=== PATIENT | female | born 1995 | race Caucasian/White ===

== ENCOUNTER → 2016-10-22 20:21 | Observation (INO) ==
[2016-10-22 19:23] LABS: Bilirubin,Urine Negative (Negative); Blood,Urine Negative (Negative); Clarity,Urine Cloudy (Clear); Color,Urine Yellow (Yellow); Glucose,Urine (UA) Normal (Normal); Ketones,Urine Negative (Negative); Leukocyte Esterase,Urine Trace (Negative); Nitrite,Urine Negative (Negative); Protein,Urine Negative (Neg-Trace); Specific Gravity,Urine 1.009 (1.010-1.025); Urobilinogen,Urine Normal (Normal)
[2016-10-22 19:25] LABS: Bacteria,Urine Moderate per hpf (None-Few); Hyaline Casts,Urine None Seen per lpf (None-Few); RBC,Urine 0-3 per hpf (0-3); Squamous Epithelial Cell,Urine Many per lpf (None-Few); WBC,Urine 0-3 per hpf (0-3)
[~2016-10-22 20:21] MED LIST: Nitrofurantoin (BID) 100 MG CAPSULE PO SCH
--- NOTE | 2016-10-22 20:23 | OB/GYN Progress Note ---
Date of Encounter: 10/22/16 Time of Encounter: 20:20 - Assessment and Plan (1) 32 weeks gestation of Current Visit: Yes Status: Acute Receives care with Dr. Magallanes. Follow-up scheduled in 3 days. (2) Threatened labor Current Visit: Yes Status: Acute No evidence for cervical change. labor warnings given. Patient encouraged to increase by mouth fluids and complete antibiotics Qualifiers: Trimester: third trimester Qualified Code(s): O47.03 - False labor before 37 completed weeks of gestation, third trimester Subjective - Subjective Principal diagnosis: 32 wk IUP Interval history: The patient is a 20-year-old female 3 para 2001 at 32 weeks gestation who presents to labor and delivery complaining of abdominal pain. She is concerned that she is having contractions. She has a history of contractions with this and in a previous . She had positive fibronectin previously. On 10/12 and she was started on Macrobid for a possible UTI. She has not completed her course of antibiotics yet. She had blood in her urine at that time and there is concern for possible kidney stone. Her urine culture was negative. She denies any hematuria, dysuria or urinary frequency. She reports an active fetus. She denies any vaginal bleeding, loss of fluid or recent intercourse. Patient reports 2 days of diarrhea, 5 loose stools today and 3 loose stools yesterday. She denies any bloody stools, nausea or vomiting Antepartum ROS: movement normal, contractions, no vaginal bleeding Objective - Vital Signs Vital Signs: Intake and Output 10/22/16 10/22/16 10/22/16 07:59 15:59 23:59 Other: Weight 69.7 kg Patient Weight 10/22/16 23:59 Weight 69.7 kg - Exam FHR: category 1 FHR comments: Baseline 140s. [place] shows irritability at arrival which resolved during stay Auscultation: bilateral: normal Abdomen: Present: soft, gravid. Absent: tenderness Uterus: Absent: tenderness Cervical dilation: Closed Cervix effacement: Thick station: -3 Comments: No CVA tenderness bilaterally. Extremities nontender, no pretibial edema. EGBUS normal. No vaginal bleeding - Labs Labs: Abnormal lab results Urine Clarity Cloudy (Clear) A 10/22/16 19:08 Ur Specific [place] 1.009 (1.010-1.025) L 10/22/16 19:08 Ur Leukocyte Esterase Trace (Negative) H 10/22/16 19:08 Ur Squamous Epith Cells Many per lpf (None-Few) H 10/22/16 19:08 Urine Bacteria Moderate per hpf (None-Few) H 10/22/16 19:08 Ur Culture Indicated? YES (NO) A 10/22/16 19:08 - Allied health notes Allied health notes reviewed: nursing
== END | disposition home or self-care (01) ==
LOC: 1NENULAB
PROVIDERS: ADMIT Obstetrics & Gynecology; ATTEND Obstetrics & Gynecology

== ENCOUNTER → 2016-11-22 17:37 | Observation (INO) ==
--- NOTE | 2016-11-22 16:24 | OB/GYN History & Physical ---
Date of Encounter: 11/22/16 Time of Encounter: 16:20 Assessment and Plan (1) 36 weeks gestation of Current visit: Yes Status: Acute admitted for observation for labor evaluation and SROM. (2) Dysuria during in third trimester Current visit: Yes Status: Acute UA sent to lab History of Present Illness Chief complaint: Leaking of fluid and contractions HPI: Ms. Hernandez is a 21 year old female at 36w5d presents to labor and delivery with c/o leaking clear fluid at 1130 with contractions. Patient reports she has had 2 wet pads since 1130. Patient denies any vaginal bleeding. Patient does report dysuria and urinary frequency. Patient denies intercourse in past 48 hours. Patient reports +FM. Past Med Surg Social Fam HX - Past Medical History Source: patient Medical history: no medical history Psychiatric history: depression - Social History Smoking Status: Current every day smoker Smokeless Tobacco Status: No Alcohol use: none Drug use: none Obstetrical History - Pregnancies : 3 Para: 2 Term: 2 : 0 Ab's: 0 Livin Medications and Allergies Ferrous Sulfate 1 tab PO BID 10/22/16 [History] Macrobid 1 tab PO BID 10/22/16 [History] Allergies No Known Allergies Allergy (Verified 10/22/16 19:32) Review of System OB - Constitutional Constitutional ROS IM: no chills, no fever(s), no headache(s) - Cardiovascular Cardiovascular: no chest pain, no lightheadedness, no palpitations, no pedal edema, no syncope - Respiratory Respiratory: no dyspnea - Gastrointestinal Gastrointestinal: no abdominal pain, no constipation, no diarrhea, no heartburn , no nausea, no vomiting - Genitourinary Genitourinary: dysuria, urinary frequency, vaginal discharge, no abnormal vaginal bleeding, no flank pain, no urinary hesitancy, no urinary incontinence, no urinary urgency, no vaginal odor, no vaginal pruritis Exam - Constitutional Constitutional: well developed, well nourished, no acute distress, average body habitus - HEENT HEENT: Normocephaly, Mucus Membranes Moist - Neck Neck exam: full ROM, supple - Lungs Respiratory exam: CTAB - Cardiovascular Cardiovascular exam: RRR, +S1, +S2 - Abdomen Abdomen: Present: bowel sounds normal, gravid, non tender - Extremities Extremities exam: full ROM, normal capillary refill, normal inspection Deep Tendon Reflex Grade: 2+ Normal - Vagina Vagina: Present: normal moisture - Cervix Dilation: 1 Effacement: 50 Station: -3 - Uterus Uterus exam: Present: normal size, normal contour - Anus/Rectum Anus/Rectum: Present: normal perianal skin - Comments Comments: Speculum exam: No pooling noted, Nitrazine negative, Fern Negative. FHR 125 bpm moderate variability, irregular contractions noted. Results All other labs normal. - VTE Reasons for not Prescribing Prophylaxis: Treatment not Indicated - Low risk for VTE
[2016-11-22 16:30] LABS: Bilirubin,Urine Negative (Negative); Blood,Urine Negative (Negative); Clarity,Urine Cloudy (Clear); Color,Urine Yellow (Yellow); Glucose,Urine (UA) Normal (Normal); Ketones,Urine Negative (Negative); Leukocyte Esterase,Urine Moderate (Negative); Nitrite,Urine Negative (Negative); Protein,Urine Negative (Neg-Trace); Specific Gravity,Urine < 1.005 (1.010-1.025); Urobilinogen,Urine Normal (Normal)
[2016-11-22 16:33] LABS: Bacteria,Urine Many per hpf (None-Few); Hyaline Casts,Urine None Seen per lpf (None-Few); Squamous Epithelial Cell,Urine Many per lpf (None-Few)
[2016-11-22 17:00] LABS: RBC,Urine 0-3 per hpf (0-3)
--- NOTE | 2016-11-22 17:29 | Discharge Summary ---
Date of Encounter: 11/22/16 Time of Encounter: 17:29 - Discharge Diagnosis (1) 36 weeks gestation of Priority: Primary Status: Acute Comments: false labor (2) Dysuria during in third trimester Priority: Secondary Status: Acute (3) NST (non-stress test) reactive Priority: Secondary Status: Acute Comments: FHR 125 bpm moderate variability +15x15 accels no decels noted. - Discharge Medications Home Medications: Ferrous Sulfate 1 tab PO BID 10/22/16 [History] Macrobid 1 tab PO BID 10/22/16 [History] Allergies/Adverse Reactions: Allergies No Known Allergies Allergy (Verified 10/22/16 19:32) Data Procedures and tests throughout hospitalization: Laboratory Tests 11/22/16 16:21 Urine Color Yellow Urine Clarity Cloudy A Urine pH 7.0 Ur Specific [place] < 1.005 L Urine Protein Negative Urine Glucose (UA) Normal Urine Ketones Negative Urine Blood Negative Urine Nitrite Negative Urine Bilirubin Negative Urine Urobilinogen Normal Ur Leukocyte Esterase Moderate H Urine Microscopic RBC 0-3 Urine Microscopic WBC 5-15 H Ur Squamous Epith Cells Many H Urine Bacteria Many H Hyaline Casts None Seen Ur Culture Indicated? YES A Labs on day of discharge: Labs from last 24 hours 11/22/16 16:21 Urine Color Yellow Urine Clarity Cloudy A Urine pH 7.0 Ur Specific [place] < 1.005 L Urine Protein Negative Urine Glucose (UA) Normal Urine Ketones Negative Urine Blood Negative Urine Nitrite Negative Urine Bilirubin Negative Urine Urobilinogen Normal Ur Leukocyte Esterase Moderate H Urine Microscopic RBC 0-3 Urine Microscopic WBC 5-15 H Ur Squamous Epith Cells Many H Urine Bacteria Many H Hyaline Casts None Seen Ur Culture Indicated? YES A Date of admission: 11/22/16 15:53 Primary care physician: Arturo Lewis CNP Discharging clinician: Praveena Mi Anticipated date of discharge: 11/22/16 - Patient Status Disposition: Home, Self-Care Condition: Good Functional capacity at discharge: independent ambulation - Discharge Instructions Follow Up With: Arturo Lewis CNP [Primary Care Provider] - Jorge Magallanes DO [Partnered Physician] - - Diet and Activity Activity: increase activity as tolerated Diet: regular diet Hospital Course MECHANICAL ASSEMBLY TECHNICIAN Time Attestation: Total time spent providing and/or coordinating discharge services: Time Spent: Less than 30 minutes Exam - Other Additional findings: Reactive NST. FHR 125 bpm moderate variability +15x15 accels no decels noted. Irregular contraction. SVE: /thick/-3 - VTE Reasons for not Prescribing Prophylaxis: Treatment not Indicated - Low risk for VTE
== END | disposition home or self-care (01) ==
LOC: 1NENULAB
PROVIDERS: ADMIT Obstetrics & Gynecology; ATTEND Obstetrics & Gynecology

== ENCOUNTER 2016-12-11 09:49 | Inpatient (IN) ==
[2016-12-11] MEDS ORDERED: Ondansetron 4 MG/2 ML VIAL IVP PRN (09:58)
[2016-12-11] MEDS ORDERED: Metoclopramide 10 MG/2 ML VIAL IVP PRN (09:58)
[2016-12-11] MEDS ORDERED: Famotidine 20 MG/2 ML VIAL IVP PRN (09:58)
[2016-12-11] MEDS ORDERED: Ringers Solution, Lactated 1,000 ML IVC SCH (10:00)
[2016-12-11] MEDS ORDERED: miSOPROStol 100 MCG TABLET PO STA (10:26)
--- NOTE | 2016-12-11 10:35 | OB/GYN History & Physical ---
Date of Encounter: 12/11/16 Time of Encounter: 10:31 Assessment and Plan (1) 39 weeks gestation of Current visit: Yes Status: Acute admit for observation (2) Elective induction of labor planned Current visit: Yes Status: Acute Will start Cytotec PO History of Present Illness Chief complaint: Patient here for scheduled IOL at 39w3d. HPI: Ms. Hernandez is a 21 year old female at 39w3d presents to labor and delivery for scheduled IOL. Discussed POC with patient. Patient denies any questions or concerns. Patient reports irregular contractions, denies LOF or VB. Patient reports +FM. Blood type: O+, Rubella: Immune, Hep B: nonreactive, GBS: Negative. Past Med Surg Social Fam HX - Past Medical History Source: patient Medical history: no medical history Psychiatric history: depression - Past Surgical History Surgical History: no surgical history - Social History Smoking Status: Current every day smoker Smokeless Tobacco Status: No Alcohol use: none Drug use: none Activity Level: Independent ambulation Recent Out of Country Travel Within the Last 8 Weeks: No Exposure or Possible Exposure to Illness During Travel: No - Family History Father Living Status: Still Living Hx Family Respiratory Disorders: Yes (asthma) Obstetrical History - Pregnancies : 3 Para: 2 Term: 2 : 0 Ab's: 2 Livin Medications and Allergies Ferrous Sulfate 1 tab PO BID 10/22/16 [History] Tablet 11/22/16 [History] Allergies No Known Allergies Allergy (Verified 10/22/16 19:32) Review of System OB - Constitutional Constitutional ROS IM: no chills, no fever(s), no headache(s) - Cardiovascular Cardiovascular: no chest pain, no dyspnea, no lightheadedness, no palpitations, no syncope - Respiratory Respiratory: no dyspnea - Gastrointestinal Gastrointestinal: no abdominal pain, no constipation, no diarrhea, no heartburn , no nausea, no vomiting - Genitourinary Genitourinary: no abnormal menses, no abnormal vaginal bleeding, no dysuria, no flank pain, no urinary frequency, no urinary urgency, no vaginal discharge, no vaginal odor, no vaginal pruritis Exam - Constitutional Constitutional: well developed, well nourished, no acute distress, average body habitus - HEENT HEENT: Normocephaly, Mucus Membranes Moist - Neck Neck exam: full ROM, supple - Lungs Respiratory exam: CTAB - Cardiovascular Cardiovascular exam: RRR, +S1, +S2 - Abdomen Abdomen: Present: bowel sounds normal, gravid, non tender - Extremities Extremities exam: full ROM, normal capillary refill, normal inspection Deep Tendon Reflex Grade: 2+ Normal - Cervix Dilation: 2 (in office last week) Effacement: 70 Station: -1 - Uterus Uterus exam: Present: normal size, normal contour - Anus/Rectum Anus/Rectum: Present: normal perianal skin - Comments Comments: 130 bpm moderate variability +15x15 accels no decels noted. Cat. 1 tracing. No contractions Results All other labs normal. - VTE Reasons for not Prescribing Prophylaxis: Treatment not Indicated - Low risk for VTE
[2016-12-11 10:39] LABS: Basophils # 0.1 K/mcL (0.0-0.2); Basophils % 0.4 %; Eosinophils # 0.2 K/mcL (0.0-0.6); Eosinophils % 1.5 %; Hematocrit 32.9 % (35.3-44.9); Hemoglobin 10.8 g/dL (11.5-15.4); Immature Granulocytes % 2.6 % (0-4); Lymphocytes # 2.7 K/mcL (0.6-4.6); Lymphocytes % 20.8 %; Mean Corpuscular HGB Conc 32.8 g/dL (31.6-35.5); Mean Corpuscular Hemoglobin 30.2 pg (28.0-33.3); Mean Corpuscular Volume 91.9 fL (83.0-100.0); Mean Platelet Volume 13.2 fL (9.4-12.4); Monocytes # 0.7 K/mcL (0.0-1.3); Monocytes % 5.5 %; Red Blood Count 3.58 M/mcL (3.82-4.97); Red Cell Distribution Width 13.3 % (11.5-14.5); Segmented Neutrophils % 69.2 %
[2016-12-11 11:04] LABS: Neutrophils # 8.9 K/mcL (1.6-8.9); Platelet Count 118 K/mcL (140-400)
--- NOTE | 2016-12-11 11:13 | Anesthesia Evaluation PreOp ---
Date of Encounter: 12/11/16 Time of Encounter: 11:12 - Past History Planned Operation: vaginal del, Induction Cardiac History: Denies any Significant Hx Pulmonary History: Denies Any Significant HX [employer] History: Denies Any Significant HX Other Medical History: Denies Any Significant HX Anesthesia History: No Prior Anesthetic Complications (first epidural okay, second one unilateral, post delivery fever, aches, chills for one month with both children 2 and 1 year ago. was told it was epidural both times as the problem. patient denied any neck stiffness/[place]/ no imaging done/ no antibotic's given.), Past Anesthesia : Yes (term ) Alcohol Use: none Drug use: none Medications and Allergies Ferrous Sulfate 1 tab PO BID 10/22/16 [History] Tablet 1 tab PO DAILY 11/22/16 [History] Cephalexin [Keflex] 500 mg PO BID 12/11/16 [History] Allergies No Known Allergies Allergy (Verified 10/22/16 19:32) Anesthesia Results - Labs 12/11/16 10:20 Anesthesia Exam - HEENT Pupil (Motor): Pupils equal Mallampati: II Teeth: Normal Oral Opening: Greater than 3 - [employer] LOC: Oriented [employer] Motor: Normal RUE, Normal LUE, Normal RLE, Normal LLE, Normal Face [employer] Sensory: Normal: RUE, LUE, RLE, LLE, Face - Cardiac Rhythm: Regular - Pulmonary Breath Sounds: bilateral Clear Respiratory Effort: Symmetrical Anesthesia Assess/Plan ASA Score: 2 Modified [place] Scale for Level of Consciousness: Cooperative, oriented, and tranquil Anesthetic Plan: General, Regional Monitoring Plan: Standard Monitors Recovery Plan: PACU
[2016-12-11] MEDS ORDERED: Epidural Premix (fent/bupiv) 110 ML EP ONE (11:46)
--- NOTE | 2016-12-11 14:24 | OB Labor Progress Note ---
Date of Encounter: 12/11/16 Time of Encounter: 14:22 Labor Progress Note - Subjective Subjective: Patient resting in bed. Discussed POC with patient. patient denies any questions or concerns. - Cervix Cervix: 3/70/-2 - Heart Tones Heart Tones: 135 bpm moderate variability +15x15 accels no decels noted. - [place]: 2-3 min apart - Interventions Interventions: SVE, AROM scant amount of clear fluid noted. - Plan Plan: Continue labor management.
[2016-12-11] MEDS ORDERED: *HR* Nalbuphine 20 MG/ML AMPUL IVP PRN (15:15)
[2016-12-11] MEDS ORDERED: *HR* Nalbuphine 20 MG/ML AMPUL ONE (15:19)
--- NOTE | 2016-12-11 17:16 | Anesthesia Procedures ---
Date of Encounter: 12/11/16 Time of Encounter: 17:08 Procedures: Anesthesia - Epidural/Spinal Patient ID/Chart reviewed: Yes Patient examined: Yes OB Eval: Gestational age: term OB Eval: : 3 OB Eval: Hx Para: 2 OB Eval: Contractions: Non-stressed pattern Consent Obtained: Yes Site Prep: Aseptic Technique, Sterile prep and drape, 0.5% Chlorhexidine/Alcohol Patient position: upright Local Anesthetic: Lidocaine 1% Amount of Local Anesthetic used: 2 Touhy Needle Gauge: 18 Touhy Needle Depth (cm): 6 Catheter Depth at Skin (cm): 9 (slight resistance to threading minor parathesia right that resolved after cath thread. ) Test Dose (1.5% Lido + Epi): Volume given (mls): 3 Test Dose Result: Negative Loading Dose: Other: 12ml from solution Loading Dose Administered: Thru Catheter Infusion Med: 0.125% Bupivacaine w/ 2 mcg/ml Fentanyl Infusion Rate (mls/hr): [address]: Tegaderm Interspace Used: L4-L5 Loss of Resistance (KELVIN): Yes (saline) Blood: No CSF: No Paresthesia: No Procedure: vss though out, FHR stable per RN;s
--- NOTE | 2016-12-11 17:26 | OB Labor Progress Note ---
Date of Encounter: 12/11/16 Time of Encounter: 17:25 Labor Progress Note - Subjective Subjective: Patient smokes comfortable after her epidural. - Cervix Cervix: 4/70/-2 - Heart Tones Heart Tones: heart tones 140s reactive - [place]: IUPC placed contractions every 2-3 minutes - Plan Plan: Continue current care if she does not make cervical change in the next couple hours we will augment with Pitocin
[2016-12-11] MEDS ORDERED: Oxytocin 20 units/ LR 1000 mL 20 UNIT/1,000 ML BAG IVC ONE (19:45)
[2016-12-11] MEDS ORDERED: Acetaminophen 325 MG TABLET PO PRN (20:37)
[2016-12-11] MEDS ORDERED: Measles/Mumps/Rubella Vacc 0.5 ML VIAL SQ PRN (20:37)
[2016-12-11] MEDS ORDERED: Oxytocin 20 units/ LR 1000 mL 20 UNIT/1,000 ML BAG IVC SCH (20:45)
--- NOTE | 2016-12-11 20:53 | OB/GYN Procedure Note ---
Delivery - Delivery Date: 12/11/16 Provider: Jorge Magallanes Intrapartum events: none Delivery induction: AROM, misoprostol Delivery monitor: external FHT, external uterine, internal uterine Anesthesia: epidural Estimated Blood Loss: 100 - (s) Infant A Infant Delivery Date: 12/11/16 Infant Delivery Time: 20:24 Presentation: vertex Position: RODERICK Route of delivery: Gender: Female Viability: Viable Pounds: 6 Ounces: 0 Weight Gram: 2.71 kg at 1 minute: 8 at 5 mins: 9 Shoulder Dystocia: not encountered Specimens collected: cord blood Cord: 3 umbilical vessels - Repair Episiotomy: none Laceration Description: None - Complications Delivery complications: none Delivery comments: Patient is a 21-year-old 3 para 2 at 39-3/7 weeks who presented for induction of labor a second term with favorable cervix. Patient was given by mouth Cytotec and declines a Resendiz catheter induction. Patient progressed appropriately she had spontaneous rupture membranes clear fluid noted. Patient did receive an epidural patient started to progress rapidly became complete she pushed one time delivering a viable female infant in right occiput anterior presentation at 2023. There was no nuchal cord, no meconium, was bulb suctioned on the abdomen, Apgars were 8 at 1 minute, 9 at 5 minutes, infant weight was 6 lbs. 0 oz. 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 Estimated blood loss was 100 mL. Perineum cervix vagina was all visualized intact. She will be observed 2 hours before being taken floor. - Disposition Mom disposition: stable in LDR disposition: stable in LDR
[2016-12-12] MEDS: Ibuprofen 600 MG TABLET PO PRN ×2 (01:16→14:00)
[2016-12-12 06:43] LABS: Basophils % 0.2 %; Eosinophils # 0.2 K/mcL (0.0-0.6); Hematocrit 30.8 % (35.3-44.9); Hemoglobin 10.2 g/dL (11.5-15.4); Immature Granulocytes % 1.7 % (0-4); Lymphocytes # 2.8 K/mcL (0.6-4.6); Lymphocytes % 17.4 %; Mean Corpuscular HGB Conc 33.1 g/dL (31.6-35.5); Mean Corpuscular Hemoglobin 29.9 pg (28.0-33.3); Mean Corpuscular Volume 90.3 fL (83.0-100.0); Mean Platelet Volume 12.7 fL (9.4-12.4); Monocytes # 1.4 K/mcL (0.0-1.3); Monocytes % 8.9 %; Neutrophils # 11.5 K/mcL (1.6-8.9); Platelet Count 169 K/mcL (140-400); Red Blood Count 3.41 M/mcL (3.82-4.97); Red Cell Distribution Width 13.5 % (11.5-14.5); Segmented Neutrophils % 70.8 %
[2016-12-12 08:18] VITALS: BP 105/70
[2016-12-12] MEDS ORDERED: Prenatal Vit/FA 1 EACH TABLET PO SCH (09:00)
--- NOTE | 2016-12-12 10:19 | Discharge Summary ---
Date of Encounter: 12/12/16 Time of Encounter: 10:16 - Discharge Diagnosis (1) (spontaneous vaginal delivery) Priority: Primary Status: Acute Comments: Doing well s/p day 1 vaginal delivery Pain well controlled lochia light and without clots tolerating regular diet passing flatus and urinating without difficulty patient is breast feeding Discharge home today - Discharge Medications Prescriptions: Ibuprofen [Motrin] 600 mg PO Q6HR PRN #60 tablet PRN Reason: Cramping Docusate [Colace] 100 mg PO BID #30 capsule Ferrous Sulfate 325 mg PO DAILY #30 tablet Home Medications: Ferrous Sulfate 1 tab PO BID 10/22/16 [History] Tablet 1 tab PO DAILY 11/22/16 [History] Docusate [Colace] 100 mg PO BID #30 capsule 12/12/16 [Rx] Ferrous Sulfate 325 mg PO DAILY #30 tablet 12/12/16 [Rx] Ibuprofen [Motrin] 600 mg PO Q6HR PRN #60 tablet 12/12/16 [Rx] Allergies/Adverse Reactions: Allergies No Known Allergies Allergy (Verified 10/22/16 19:32) Data Procedures and tests throughout hospitalization: Laboratory Tests 12/11/16 12/12/16 10:20 06:10 WBC 12.9 H 16.2 H RBC 3.58 L 3.41 L Hgb 10.8 L 10.2 L Hct 32.9 L 30.8 L MCV 91.9 90.3 MCH 30.2 29.9 MCHC 32.8 33.1 RDW 13.3 13.5 Plt Count 118 L 169 MPV 13.2 H 12.7 H Immature Gran % 2.6 1.7 Seg Neutrophils % 69.2 70.8 Lymphocytes % 20.8 17.4 Monocytes % 5.5 8.9 Eosinophils % 1.5 1.0 Basophils % 0.4 0.2 Neutrophils # 8.9 11.5 H Lymphocytes # 2.7 2.8 Monocytes # 0.7 1.4 H Eosinophils # 0.2 0.2 Basophils # 0.1 0.0 Labs on day of discharge: Labs from last 24 hours 12/12/16 12/11/16 06:10 10:20 WBC 16.2 H 12.9 H RBC 3.41 L 3.58 L Hgb 10.2 L 10.8 L Hct 30.8 L 32.9 L MCV 90.3 91.9 MCH 29.9 30.2 MCHC 33.1 32.8 RDW 13.5 13.3 Plt Count 169 118 L MPV 12.7 H 13.2 H Immature Gran % 1.7 2.6 Seg Neutrophils % 70.8 69.2 Lymphocytes % 17.4 20.8 Monocytes % 8.9 5.5 Eosinophils % 1.0 1.5 Basophils % 0.2 0.4 Neutrophils # 11.5 H 8.9 Lymphocytes # 2.8 2.7 Monocytes # 1.4 H 0.7 Eosinophils # 0.2 0.2 Basophils # 0.0 0.1 Date of admission: 12/11/16 09:49 Primary care physician: Arturo Lewis CNP Consults: 12/11/16 20:37 Consult to [place] Runner [CONS] Routine Comment: Vaginal delivery, consult needed Discharging clinician: Adriana Sullivan Anticipated date of discharge: 12/12/16 - Patient Status Disposition: Home, Self-Care Condition: Good Functional capacity at discharge: independent ambulation Overall status at discharge: patient is progressing back to baseline - Discharge Instructions Follow Up With: Arturo Lewis CNP [Primary Care Provider] - Jorge Magallanes DO [Partnered Physician] - - Diet and Activity Activity: increase activity as tolerated Diet: regular diet Hospital Course Reason for admission: induction of labor Delivery: Episiotomy: none Laceration: none Other procedures: none complications: none Discharge diagnosis: IUP at term delivered [place] baby: female Time Attestation: Total time spent providing and/or coordinating discharge services: Time Spent: Less than 30 minutes Exam - Constitutional Vitals: Temp Pulse Resp BP Pulse Ox 98.7 F 82 12 105/70 97 12/12/16 08:16 12/12/16 08:16 12/12/16 08:16 12/12/16 08:16 12/12/16 08:16 General appearance IM: cooperative, A&O X 3, pleasant - Respiratory Respiratory exam: Present: CTAB - Cardiovascular Cardiovascular exam IM: Present: RRR, +S1, +S2 - GI/Abdominal GI/Abdominal exam IM: normal bowel sounds, soft - Rectal Rectal exam: deferred - Uterine Tone: Firm Uterus Position: 2 Fingers Below Umbilicus, Midline - Extremities Exam Extremities exam IM: Present: normal capillary refill, normal inspection, radial pulses palpable and symetrical - Neurological Exam Neurological exam: alert, oriented X3
== END 2016-12-12 16:30 | disposition home or self-care (01) | DRG 775 ==
LOC: 1NENULAB 09:49 → 1NENUOBS 22:47
PROVIDERS: ADMIT Obstetrics & Gynecology; ATTEND Obstetrics & Gynecology

== ENCOUNTER 2017-12-21 09:31 | Inpatient (IN) ==
[~2017-12-21 09:31] MED LIST changes: -Nitrofurantoin (BID) 100 MG CAPSULE PO SCH; +Ringers Solution, Lactated 2,000 ML ONE
[2017-12-21] MEDS ORDERED: *HR* Propofol 200 MG/20 ML VIAL IVP ONE (09:35)
[2017-12-21] MEDS ORDERED: *HR* Succinylcholine 200 MG/10 ML VIAL IVP ONE (09:35)
[2017-12-21] MEDS ORDERED: *HR* FentaNYL (PF) 100 MCG/2 ML VIAL ONE (09:35)
[2017-12-21] MEDS ORDERED: Dexamethasone 4 MG/ML VIAL ONE (09:35)
[2017-12-21] MEDS ORDERED: *HR* Oxytocin 10 UNIT/ML VIAL IM ONE ×3 (09:35→10:14)
[2017-12-21] MEDS ORDERED: Ringers Solution, Lactated 1,000 ML ONE ×3 (09:35→21:07)
[2017-12-21] MEDS ORDERED: Lidocaine -MPF 2% 5 ML VIAL ONE (09:42)
[2017-12-21] MEDS ORDERED: *HR* Morphine 10 MG/ML VIAL ONE (09:54)
[2017-12-21] MEDS ORDERED: Acetaminophen IV 1,000 MG/100 ML INFUS..BTL ONE ×2 (10:12→11:57)
[2017-12-21] MEDS ORDERED: Metoclopramide 10 MG/2 ML VIAL IVP PRN ×2 (10:50→13:15)
[2017-12-21] MEDS ORDERED: Ondansetron 4 MG/2 ML VIAL IVP PRN ×2 (10:50→13:15)
[2017-12-21] MEDS ORDERED: Naloxone 0.4 MG/ML INJ IVP PRN ×2 (11:47→13:15)
[2017-12-21] MEDS ORDERED: *HR* HYDROmorphone 20 MG/20 ML PCA IVC PRN ×2 (11:47→13:42)
[2017-12-21] MEDS ORDERED: Oxytocin 20 units/ LR 1000 mL 20 UNIT/1,000 ML BAG IVC ONE (11:52)
[2017-12-21] MEDS ORDERED: Ringers Solution, Lactated 1,000 ML IVC ONE (11:52)
[2017-12-21] MEDS ORDERED: CeFAZolin Premix DUPLEX 2,000 MG/50 ML BAG IVPB ONE (11:52)
[2017-12-21] MEDS ORDERED: Oxytocin 20 units/ LR 1000 mL 20 UNIT/1,000 ML BAG IVC SCH ×3 (12:00→13:15)
[2017-12-21] MEDS ORDERED: Ringers Solution, Lactated 1,000 ML IVC SCH (12:00)
--- NOTE | 2017-12-21 12:57 | Anesthesia Evaluation PreOp ---
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 No problems with GA, No FHAP. Epidurals with previous deliveries, no problems.) : Yes Alcohol Use: none Drug use: none Medications and Allergies Tablet 1 tab PO DAILY 11/22/16 [History] 3 Allergy/AdvReac Type Severity Reaction Status Date / Time No Known Allergies Allergy Verified 12/21/17 11:42 - Meds/Allergy Pre-op Review Medications Reviewed: Yes Allergies Reviewed: Yes Beta Blockers on Current Med List: No Anesthesia Exam VSS and FHTs stable. Height: 1.65m Weight: 62kg NPO (# of Hours): > 8 solids, sips H2O. Pain Scale: 10 Pain Scale Used: Numeric (1 - 10) - HEENT Pupil (Motor): Pupils equal, EOMI Mallampati: II Teeth: Poor dentition Oral Opening: Greater than 3 - AUTO DRIVER LOC: Oriented AUTO DRIVER Motor: Normal RUE, Normal LUE, Normal RLE, Normal LLE, Normal Face AUTO DRIVER Sensory: Normal: RUE, LUE, RLE, LLE, Face - Cardiac Rhythm: Regular - Pulmonary Breath Sounds: bilateral Clear Respiratory Effort: Symmetrical Anesthesia Assess/Plan ASA Score: 2, E Modified [place] Scale for Level of Consciousness: Cooperative, oriented, and tranquil Anesthetic Plan: General (Stat per Dr. Haas.) Monitoring Plan: Standard Monitors Recovery Plan: PACU
--- NOTE | 2017-12-21 13:01 | Anesthesia Evaluation Post Op ---
Date of Encounter: 12/21/17 Time of Encounter: 12:20 - Vital Signs Vital Signs: VSS throughout PACU stay. - Lungs Lungs: Clear Ascult./Percussion - Airway Airway: Non-obstructed - Cardiovascular Regular Rate - Mental Status Mental Status: Alert & Oriented, Answers Appropriately - Pain Pain Scale: 8 (appears in no distress) Pain Scale used: Numeric (1 - 10) - Nausea Vomiting Nausea Vomiting: Not Present - Hydration Hydration: NPO, Resendiz catheter - Discharge PostOp Status: Transfer Patient to floor
[2017-12-21] MEDS ORDERED: Simethicone 80 MG TAB.CHEW PO PRN (13:15)
[2017-12-21] MEDS ORDERED: Sennosides 8.6 MG TABLET PO PRN (13:15)
[2017-12-21] MEDS ORDERED: *HR* OxyCODONE/APAP 5/325 TABLET PO PRN (13:15)
[2017-12-21 17:18] LABS: Basophils % 0.2 %; Eosinophils # 0.2 K/mcL (0.0-0.6); Hematocrit 33.3 % (35.3-44.9); Hemoglobin 11.4 g/dL (11.5-15.4); Immature Granulocytes % 1.5 % (0-4); Immature Platelets 9.2 % (1.1-6.1); Lymphocytes # 2.8 K/mcL (0.6-4.6); Lymphocytes % 16.1 %; Mean Corpuscular HGB Conc 34.2 g/dL (31.6-35.5); Mean Corpuscular Hemoglobin 30.6 pg (28.0-33.3); Mean Corpuscular Volume 89.5 fL (83.0-100.0); Monocytes # 1.4 K/mcL (0.0-1.3); Neutrophils # 12.7 K/mcL (1.6-8.9); Platelet Count 195 K/mcL (140-400); Red Blood Count 3.72 M/mcL (3.82-4.97); Red Cell Distribution Width 13.8 % (11.5-14.5); Segmented Neutrophils % 73.2 %
--- NOTE | 2017-12-21 17:19 | OB/GYN Procedure Note ---
Section - Date of procedure: 12/21/17 Preop diagnosis: desires sterilization, breech Post-op diagnosis: same Procedure: primary low transverse, bilateral tubal ligation Surgeon: Bela Haas Quantitated Blood Loss: 550 Was there an culture media laboratory assistant present: Yes Engineering And Operations Director: Praveena Landa Anesthesiologist: Agustin Cruz Load Dispatcher: Violetta Elkins Anesthesia Type: General section complications: none Disposition: L&D Recovery Room Specimens: Placenta, Cord blood, Right tube segment, Left tube segment - Infant (s) Infant A Delivery Date: 12/21/17 Infant Delivery Time: :20 Presentation: breech Gender: Female Gram Weight: 2.97 kg at 1 minute: 9 at 5 minutes: 10 Shoulder Dystocia: not encountered - Narrative Narrative: After informed consent was obtained, she was taken to the operating room where she was placed in the dorsal supine position with a leftward tilt and prepped and draped in the usual sterile fashion. She had to be placed under General Anesthesia because she could not stay still for spinal anesthesia. As soon as General Anesthesia was given, a Pfannenstiel skin incision was made and carried down to the underlying layer of fascia. The fascia was excised in the midline and extended bluntly to reveal the rectus muscles. The rectus muscles were then bluntly to reveal the peritoneum. The peritoneum was identified and entered bluntly digitally. The bladder was identified and a bladder blade was inserted. A uterine incision was made with a knife and extended digitally revealing the baby. Both feet were identified and the baby was delivered from the breach position without any difficulty. The cord was clamped and cut with the baby handed off to the awaiting nurses. The placenta cord blood was obtained and the placenta was manually extracted from the uterus. The uterus was exteriorized and cleared of all clots and debris. Then, the uterine incision was closed with #0 Vicryl in a double closure stitch fashion, first layer in locking stitch fashion and the second layer an imbricating layer. Attention at this time was turned to the tubes bilaterally. Both tubes were isolated and followed all the way to the fimbriated end and tented up with the Grandy clamp at the center. A hemostat was probed through the mesosalpinx in the avascular area and then a section of tube was tied off with 0 plain gut and then transected with the Metzenbaum scissors. The ends were then burned with cautery. Both tube sections were noted to be hemostatic and the tubes were then sent to pathology. The uterus was then replaced back into the abdomen. The gutters were cleared of all clots and debris. The uterine incision was then once again inspected and noted to be hemostatic. X ray was done and was clear of any retained sponges. The fascia was then closed with #0 Vicryl in a running fashion. The skin edges were reapproximated using 4-0 vicryl. Dressing was placed. The patient tolerated the procedure well. Sponge, lap, and needle, counts were correct x2. The patient was taken to recovery in sable condition.
[2017-12-22 06:30] LABS: Basophils % 0.1 %; Eosinophils # 0.1 K/mcL (0.0-0.6); Eosinophils % 0.2 %; Hematocrit 26.8 % (35.3-44.9); Hemoglobin 9.2 g/dL (11.5-15.4); Immature Granulocytes % 1.2 % (0-4); Lymphocytes # 2.7 K/mcL (0.6-4.6); Lymphocytes % 11.3 %; Mean Corpuscular HGB Conc 34.3 g/dL (31.6-35.5); Mean Corpuscular Hemoglobin 31.3 pg (28.0-33.3); Mean Corpuscular Volume 91.2 fL (83.0-100.0); Mean Platelet Volume 11.9 fL (9.4-12.4); Monocytes # 2.2 K/mcL (0.0-1.3); Monocytes % 9.1 %; Neutrophils # 18.7 K/mcL (1.6-8.9); Platelet Count 169 K/mcL (140-400); Red Blood Count 2.94 M/mcL (3.82-4.97); Red Cell Distribution Width 13.9 % (11.5-14.5); Segmented Neutrophils % 78.1 %
[2017-12-22] MEDS ORDERED: *HR* OxyCODONE/APAP 5/325 TABLET PO PRN (08:09)
[2017-12-22] MEDS: Prenatal Vit/FA 1 EACH TABLET PO SCH (08:19)
[2017-12-22] MEDS: Ibuprofen 600 MG TABLET PO PRN ×3 (08:23→21:39)
--- NOTE | 2017-12-22 11:05 | OB/GYN Progress Note ---
Date of Encounter: 12/22/17 Time of Encounter: 11:03 - Assessment and Plan (1) Status post section Current Visit: Yes Status: Acute Stable POD #1 Continue current management anticipate DC tomorrow. Subjective - Subjective Interval history: Pain well managed on po pain medication, passing flatus, tolerates diet, bottle feeding, Patient reports: appetite normal, voiding normally, pain well controlled, ambulating normally : doing well Objective - Vital Signs Latest vital signs: Vital Signs Temp Pulse Resp BP Pulse Ox 12/22/17 00:00 98.2 F 77 18 105/62 96 12/21/17 20:00 98.3 F 77 14 113/65 97 12/21/17 16:48 98 F 65 12 113/70 98 12/21/17 15:05 97.9 F 60 16 106/63 97 12/21/17 13:30 97.8 F 68 12 106/63 97 12/21/17 13:00 97.9 F 60 12 114/70 98 Intake and Output 12/21/17 12/22/17 12/22/17 23:59 07:59 15:59 Intake Total 500 / 500 1000 / 1000 Output Total 1500 / 1500 3200 / 3200 Balance -1000 / -1000 -2200 / -2200 Intake: Oral 500 / 500 1000 / 1000 Output: Urine 1500 / 1500 Catheter 3200 / 3200 Urethral (Resendiz) 3200 / 3200 - Exam Lungs: bilateral: normal Chest: Normal S1, Normal S2 Extremities: Present: normal Abdomen: Present: normal appearance, soft Incision: Present: dressed Uterus: Present: firm (U) - Labs Labs: Laboratory Results - last 24 hr 12/21/17 12/22/17 09:00 06:10 WBC 17.3 H 23.9 H RBC 3.72 L 2.94 L Hgb 11.4 L 9.2 L D Hct 33.3 L 26.8 L MCV 89.5 91.2 MCH 30.6 31.3 MCHC 34.2 34.3 RDW 13.8 13.9 Plt Count 195 169 MPV 12.0 11.9 Immature Gran % 1.5 1.2 Seg Neutrophils % 73.2 78.1 Lymphocytes % 16.1 11.3 Monocytes % 8.0 9.1 Eosinophils % 1.0 0.2 Basophils % 0.2 0.1 Neutrophils # 12.7 H 18.7 H Lymphocytes # 2.8 2.7 Monocytes # 1.4 H 2.2 H Eosinophils # 0.2 0.1 Basophils # 0.0 0.0 Immature Plt Fraction 9.2 H
[2017-12-22] MEDS ORDERED: Ondansetron ODT 4 MG TAB.RAPDIS SL ONE (15:01)
--- NOTE | 2017-12-23 08:35 | Discharge Summary ---
Date of Encounter: 12/23/17 Time of Encounter: 08:32 - Discharge Diagnosis (1) Status post section Priority: Primary Status: Acute Comments: Meeting all PP milestones, tolerates regular diet, pain well managed on po pain medication, bottle feeding, desires discharge. - Discharge Medications Prescriptions: OxyCODONE/APAP 5/325 [Percocet 5/325 MG] 1 each PO Q4HR PRN 4 Days #14 tablet PRN Reason: Pain Ibuprofen [Motrin] 600 mg PO Q6HR PRN #60 tablet PRN Reason: Cramping Docusate [Colace] 100 mg PO BID #60 capsule Ferrous Sulfate 325 mg PO BIDWM #60 tablet Home Medications: Tablet 1 tab PO DAILY 11/22/16 [History] Docusate [Colace] 100 mg PO BID #60 capsule 12/23/17 [Rx] Ferrous Sulfate 325 mg PO BIDWM #60 tablet 12/23/17 [Rx] Ibuprofen [Motrin] 600 mg PO Q6HR PRN #60 tablet 12/23/17 [Rx] OxyCODONE/APAP 5/325 [Percocet 5/325 MG] 1 each PO Q4HR PRN 4 Days #14 tablet [Rx] Vit/FA 1 each PO DAILY tablet 12/23/17 [Rx] Simethicone [Gas-X] 80 mg PO TID PRN tab.chew 12/23/17 [Rx] Allergies/Adverse Reactions: 3 Allergy/AdvReac Type Severity Reaction Status Date / Time No Known Allergies Allergy Verified 12/21/17 11:42 Data Procedures and tests throughout hospitalization: Laboratory Tests 12/21/17 12/22/17 09:00 06:10 WBC 17.3 H 23.9 H RBC 3.72 L 2.94 L Hgb 11.4 L 9.2 L D Hct 33.3 L 26.8 L MCV 89.5 91.2 MCH 30.6 31.3 MCHC 34.2 34.3 RDW 13.8 13.9 Plt Count 195 169 MPV 12.0 11.9 Immature Gran % 1.5 1.2 Seg Neutrophils % 73.2 78.1 Lymphocytes % 16.1 11.3 Monocytes % 8.0 9.1 Eosinophils % 1.0 0.2 Basophils % 0.2 0.1 Neutrophils # 12.7 H 18.7 H Lymphocytes # 2.8 2.7 Monocytes # 1.4 H 2.2 H Eosinophils # 0.2 0.1 Basophils # 0.0 0.0 Immature Plt Fraction 9.2 H - Impressions ITS Impressions KUB X-Ray 12/21/17 00:00 IMPRESSION: No evidence of a metallic density or radiopaque foreign object over the abdomen or pelvis. D/ / 12/21/2017 12:50:34 Nick Falk MD / sarina Interpreting Provider: Nick Falk MD Date of admission: 12/21/17 09:31 Primary care physician: Rabia Felton CNP Discharging clinician: Renita Camarena Anticipated date of discharge: 12/23/17 - Patient Status Disposition: Home, Self-Care Condition: Good Functional capacity at discharge: independent ambulation Overall status at discharge: patient is back to baseline - Discharge Instructions Follow Up With: Rabia Felton CNP [Primary Care Provider] - Jorge Magallanes DO [Partnered Physician] - - Diet and Activity Activity: resume usual activities as tolerated Diet: regular diet Hospital Course Reason for admission: active labor, section Delivery: section Episiotomy: none Laceration: none Other procedures: tubal ligation complications: none Discharge diagnosis: IUP at term delivered [place] baby: female Hospital course: Section - Date of procedure: 12/21/17 Preop diagnosis: desires sterilization, breech Post-op diagnosis: same Procedure: primary low transverse, bilateral tubal ligation Surgeon: Bela Haas Quantitated Blood Loss: 550 Was there an administrative services assistant present: Yes House Visitor: Praveena Landa Anesthesiologist: Agustin Cruz Wildlife Conservation Professor: Violetta Elkins Anesthesia Type: General section complications: none Disposition: L&D Recovery Room Specimens: Placenta, Cord blood, Right tube segment, Left tube segment - (s) A Infant Delivery Date: 12/21/17 Delivery Time: 09:20 Presentation: breech Gender: Female Gram Weight: 2.97 kg at 1 minute: 9 at 5 minutes: 10 Shoulder Dystocia: not encountered Stable in PP and appropriate for discharge. OAARS reviewed Time Attestation: Total time spent providing and/or coordinating discharge services: Time Spent: Less than 30 minutes - VTE Documentation of Mechanical Device: Intermittent pneumatic compression device Exam - Constitutional Vitals: Temp Pulse Resp BP Pulse Ox 98.3 F 77 16 115/58 98 12/22/17 20:05 12/22/17 20:05 12/22/17 20:05 12/22/17 20:05 12/22/17 20:05 General appearance IM: A&O X 3 - Respiratory Respiratory exam: Present: CTAB - Cardiovascular Cardiovascular exam IM: Present: RRR - GI/Abdominal GI/Abdominal exam IM: soft Incision: dressed - Uterine Tone: Firm Uterus Position: At Umbilicus - Extremities Exam Extremities exam IM: Present: normal capillary refill, normal inspection - Neurological Exam Neurological exam: normal gait, oriented X3 - Psychiatric Additional comments: reports good mood
[2017-12-23 08:46] VITALS: BP 115/72
[2017-12-23] MEDS: Prenatal Vit/FA 1 EACH TABLET PO SCH (09:03)
[2017-12-23] MEDS: Ibuprofen 600 MG TABLET PO PRN (09:04)
--- NOTE | 2018-01-02 08:25 | OB/GYN History & Physical ---
Date of Encounter: 12/21/17 Time of Encounter: 11:00 History of Present Illness HPI: Ms. Hernandez is a 22 year old female Past Med Surg Social Fam HX - Past Medical History Medical history: no medical history Additional medical history: anemia Psychiatric history: depression - Past Surgical History Surgical History: no surgical history Additional surgical history: Tonsils and Adenoids - Social History Smoking Status: Current every day smoker Packs per day: 1 Smokeless Tobacco Status: No Alcohol use: none Drug use: none - Family History Father Living Status: Still Living Hx Family Cardiac Disorders: No Hx Family Respiratory Disorders: No Hx Family Cancer: No Hx Family GI Disorders: No Hx Family Genitourinary Disorders: No Hx Family Endocrine Disorder: Yes Hx Family Musculoskeletal Disorders: No Hx Family Neuromuscular Disorders: No Hx Family Neurologic Disorders: No Hx Family Autoimmune Disorders: No Hx Family Reproductive Disorders: No Hx Family Psychosocial Disorders: No Hx Family Medical Disorders: No Obstetrical History - Pregnancies : 4 Medications and Allergies Tablet 1 tab PO DAILY 11/22/16 [History] Docusate [Colace] 100 mg PO BID #60 capsule 12/23/17 [Rx] Ferrous Sulfate 325 mg PO BIDWM #60 tablet 12/23/17 [Rx] Ibuprofen [Motrin] 600 mg PO Q6HR PRN #60 tablet 12/23/17 [Rx] OxyCODONE/APAP 5/325 [Percocet 5/325 MG] 1 each PO Q4HR PRN 4 Days #14 tablet [Rx] Vit/FA 1 each PO DAILY tablet 12/23/17 [Rx] Simethicone [Gas-X] 80 mg PO TID PRN tab.chew 12/23/17 [Rx] 3 Allergy/AdvReac Type Severity Reaction Status Date / Time No Known Allergies Allergy Verified 12/21/17 11:42 Exam - Vital Signs Vital signs: Initial Vital Signs Temp Pulse Resp BP Pulse Ox 97.9 F 60 12 114/70 98 12/21/17 13:00 12/21/17 13:00 12/21/17 13:00 12/21/17 13:00 12/21/17 13:00 Results Result Diagrams: 12/22/17 06:10 Abnormal lab results WBC 23.9 K/mcL (4.3-11.1) H 07/21/18 06:10 RBC 2.94 M/mcL (3.82-4.97) L 12/22/17 06:10 Hgb 9.2 g/dL (11.5-15.4) L D 12/22/17 06:10 Hct 26.8 % (35.3-44.9) L 12/22/17 06:10 Neutrophils # 18.7 K/mcL (1.6-8.9) H 12/22/17 06:10 Monocytes # 2.2 K/mcL (0.0-1.3) H 12/22/17 06:10 Immature Plt Fraction 9.2 % (1.1-6.1) H 12/21/17 09:00 All other labs normal. - VTE Documentation of Mechanical Device: Intermittent pneumatic compression device
== END 2017-12-23 11:00 | disposition home or self-care (01) | DRG 766 ==
LOC: 1NENULAB 09:31 → 1NENUOBS 13:10
PROVIDERS: ADMIT Student in an Organized Health Care Education/Training Program; ATTEND Student in an Organized Health Care Education/Training Program